=== PATIENT | female | born 1950 | race Caucasian/White ===

== ENCOUNTER → 2023-12-16 11:34 | Outpatient (REF) | payer MEDICARE, OTHER, SELFPAY ==
[2023-12-16 12:30] LABS: ALT (SGPT) 34 U/L (0-35); AST (SGOT) 37 U/L (14-36); Albumin 4.5 g/dl (3.5-5.0); Alkaline Phosphatase 57 U/L (38-126); Blood Urea Nitrogen 19 mg/dl (7-17); Calcium 9.6 mg/dl (8.4-10.2); Carbon Dioxide 28 mmol/L (22-30); Chloride 104 mmol/L (98-107); Glucose 90 mg/dl (70-99); Potassium 4.1 mmol/L (3.5-5.1); Sodium 137 mmol/L (135-145); Total Bilirubin 0.7 mg/dl (0.2-1.3); Total Protein 7.5 g/dl (6.3-8.2); eGFR > 60.00
[2023-12-16 12:47] LABS: Vitamin D, 25-OH*** 58.2 ng/mL (30-80)
== END ==
LOC: REG 11:34
PROVIDERS: ATTENDING PHYSICIAN Internal Medicine Rheumatology; FAMILY PHYSICIAN Internal Medicine
DX: E55.9 Vitamin D deficiency, unspecified (principal); M81.0 Age-related osteoporosis without current pathological fracture; Z79.899 Other long term (current) drug therapy
CPT/HCPCS: 36415; 80053; 82306

== ENCOUNTER → 2024-01-26 08:13 | Outpatient (REF) | payer MEDICARE, OTHER, SELFPAY ==
[2024-01-26 09:01] LABS: % Basophils 0.7 % (0-2); % Eosinophils 2.9 % (0-6); % Immature Granulocytes 0.3 % (0-0.5); % Lymphocytes 37.6 % (20.5-51.1); % Monocytes 7.9 % (1.7-9.3); % Neutrophils 50.6 % (42.2-75.2); Absolute Basophils 0.1 10^3/uL (0-0.2); Absolute Eosinophils 0.2 10^3/uL (0-0.7); Absolute Lymphocytes 2.6 10^3/uL (1.2-3.4); Absolute Monocytes 0.5 10^3/uL (0.1-0.6); Absolute Neutrophils 3.5 10^3/uL (1.4-6.5); Hematocrit 40.9 % (37.0-47.0); Hemoglobin 13.9 g/dL (12.0-16.0); Mean Corpuscular Hgb 31.6 pg (27.0-31.0); Mean Platelet Volume 9.5 fL (7.4-10.4); Nucleated Red Blood Cells % 0 %; Platelet Count 248 10^3/uL (130-400); Red Cell Dist. Width 12.5 % (11.5-14.5); White Blood Cell Count 6.8 10^3/uL (4.8-10.8)
[2024-01-26 09:47] LABS: ALT (SGPT) 32 U/L (0-35); AST (SGOT) 34 U/L (14-36); Albumin 4.7 g/dl (3.5-5.0); Alkaline Phosphatase 58 U/L (38-126); Blood Urea Nitrogen 16 mg/dl (7-17); Calcium 9.7 mg/dl (8.4-10.2); Carbon Dioxide 27 mmol/L (22-30); Chloride 105 mmol/L (98-107); Glucose 89 mg/dl (70-99); HDL Cholesterol 65 mg/dl; LDL Cholesterol, Calculated 127 mg/dl; Potassium 4.5 mmol/L (3.5-5.1); Sodium 137 mmol/L (135-145); Total Bilirubin 0.5 mg/dl (0.2-1.3); Total Cholesterol 212 mg/dl (50-199); Total Protein 7.6 g/dl (6.3-8.2); Triglyceride 104 mg/dl (10-149); Very Low Density Lipoprotein 20 mg/dl (0-30); eGFR > 60.00
[2024-01-26 10:07] LABS: TSH Reflex To Free T4 4.06 uIU/ml (0.47-4.68)
== END ==
LOC: REG 08:13
PROVIDERS: ATTENDING PHYSICIAN Nurse Practitioner Family
DX: I10 Essential (primary) hypertension (principal); I48.0 Paroxysmal atrial fibrillation; E78.00 Pure hypercholesterolemia, unspecified; R53.83 Other fatigue
CPT/HCPCS: 36415; 80053; 80061; 84443; 85025

== ENCOUNTER 2024-03-04 06:22 | Day surgery (SDC) | payer MEDICARE, OTHER, SELFPAY | END 2024-03-04 11:00 | disposition home or self-care (01) | LOC: CATH 06:22 | PROVIDERS: ATTENDING PHYSICIAN Internal Medicine Cardiovascular Disease; FAMILY PHYSICIAN Internal Medicine | DX: I48.91 Unspecified atrial fibrillation (principal); I08.1 Rheumatic disorders of both mitral and tricuspid valves; I08.8 Other rheumatic multiple valve diseases; I70.0 Atherosclerosis of aorta; Z79.01 Long term (current) use of anticoagulants | CPT/HCPCS: 93312; 93320; 93325 ==

== ENCOUNTER 2024-03-08 06:22 | Day surgery (SDC) | payer MEDICARE, OTHER, SELFPAY ==
[2024-02-26 11:52] VITALS: BMI 25.1
[2024-03-04 09:56] VITALS: BMI 25.4
[2024-03-08] VITALS (11 sets, daily range): BP systolic 131–153; BP diastolic 68–108; BMI 25.3
--- NOTE | 2024-03-08 07:23 | ITS.CL.ABL ---
[facility] [employer] - Ablation
Ablation
Procedure Report:
Primary Rn Orthopedic: Familia Watt MD
Procedure Date: 03/08/2024
Patient History:
Patient is a pleasant 73-year-old female with a past medical history significant for hypertension, hypercholesterolemia, osteoporosis, migraines, symptomatic early persistent atrial fibrillation with recurrence following cardioversion. Rate
controlled on metoprolol, oral anticoagulation with Eliquis.
See H&P for complete details.
Indication:
Symptomatic persistent atrial fibrillation
Recurrence following cardioversion
Arrhythmia Specific History:
Prior Medical Therapies for Rate and Rhythm Control:
X Beta-alexandr
[ ] Calcium channel-alexandr
[ ] Amiodarone
[ ] Dronederone
[ ] Sotalol
[ ] Flecainide
[ ] Dofetilide
[ ] Options limited by bradycardia
[ ] Options limited by comorbid renal disease
Prior Procedural Therapies for AF/AFL:
X Cardioversion
[ ] Pulmonary Vein Isolation
[ ] Posterior Wall Isolation
[ ] Additional lines (Specify)
[ ] Surgical Villeda-MAZE or PVI (Specify)
Procedure Performed:
X AF ablation procedure (80158) -- includes LA/CS pacing, trans-septal, 3D mapping, + ICE
[ ] +IV drug (01864)
[ ] +Other Arrhythmia (38631)
[ ] +Other AF Line/ablation (53493)
Risks and expected recovery has been explained in detail. Alternative options have been explored, and in a shared-decision making fashion we have decided that this was the most appropriate procedure.
Method
NPO status confirmed. Grounding pad applied. Defibrillator pads applied. Continuous surface ECG, pulse oximetry, and blood pressure were monitored. Procedure was performed under general anesthesia, with anesthesia services.
Both groins were clipped, prepped with Chloraprep, and draped in sterile fashion. Time out was called. Local anesthesia administered with bupivacaine. The right and left femoral veins were accessed for catheter placement, using ultrasound guidance,
micro-puncture needle/wire, and modified seldinger technique. 3 sheaths were placed. Due to venous tortuosity, a long 10 Fr sheath was used in the left groin for the ICE catheter. The following catheters were used:
[ ] Tacticath SE (D/F Curve) ablation catheter
X Viewflex 9Fr ICE catheter
X Inquiry decapolar 6Fr diagnostic catheter
[ ] CRD Hex 6Fr
[ ] Arctic Front Advance Cryoballoon ([ ]28mm[ ]23mm)
[ ] Achieve Advance mapping catheter ([ ]15mm[ ]20mm)
X FlexCath Contour 10 Fr with PulseSelect PFA Catheter
X Advisor HD Grid Mapping Catheter, SE
[ ] Acuson AcuNav 8 Fr ICE catheter
[ ]Other: [ ]
Intracardiac ultrasound (ICE) was carefully advanced into the right atrium to guide sheath placement over a J-wire, catheter placement, guide trans-septal puncture, identify potential complications, identify anatomic structures and ensure proper
contact between ablation catheter and tissue.
Heparin was given prior to trans-septal puncture. Heparin was given to achieve and maintain a target ACT of 300-400 seconds throughout the procedure.
Trans-septal access was performed under ICE guidance. The trans-septal puncture was attempted with a SafeSept wire through a [place] needle assembly however despite visualization on the midportion thin intraatrial septum, there was inability
to pass needle/wire into the LA. The assembly was removed. Next, the FlexCath Cross transseptal system was introduced into the steerable sheath. Under fluoroscopic and ICE guidance, transseptal was performed. The wire was visualized as it entered
the LSPV and system advanced under ICE guidance and fluoroscopy into the LA. The sheath was advanced into the LA and the FlexCath Cross transseptal system was removed under negative pressure. LA pressure was measured and recorded.
ICE and 3D mapping was performed to identify relevant cardiac structures. A careful 3D map was created to assess for regions of low-voltage and abnormal electrogram signals using HD grid mapping catheter and PulseSelect catheter. Additional mapping
was performed as outlined below.
Prior to ablation, glycopyrrolate was provided. PulseSelect catheter was advanced over J-wire to the ostium of each vein. Pulmonary vein isolation was performed with ostial and antral lesions in a circumferential manner. Contact was visualized via
EAM, ICE, fluoroscopy, and EGM signals. Following completion of ablation lesions, sinus rhythm was restored with a 200J synchronized DCCV and a post-ablation voltage/activation map was performed in sinus rhythm. Entrance and exit block were
confirmed for each vein.
Catheter and sheath were removed from the left atrium and post-ablation intracardiac echo evaluation was consistent with pre-ablation with no changes and no pericardial effusion and there is no left atrial thrombus or left ventricle thrombus seen.
Electrophysiology study was performed. Hemostasis was obtained with figure of 8 stitch for each groin and with manual pressure. Protamine was used for reversal.
Estimated Blood Loss
5-10 mL
Complications
None
Fluoroscopy: 22.5 minutes; 50.7 mGy; DAP 7.0
Baseline Intervals:
Rhythm: AF
QRS: 106 ms
Post-Procedure Intervals:
OH: 168 ms
QRS: 83 ms
QT: 432 ms
QTc: 429 ms
A-A: 1039 ms
R-R: 1039 ms
AVWB: 450 ms
AVERP: 600/400 ms
Recommendations
- Bedrest with straight-leg precautions as ordered
- Anticipate same day discharge if patient meeting clinical metrics
- Resume home medications as indicated
- Ok to resume anticoagulation tonight if patient and groin sites stable
- PPI daily for 30 days
- Plan for follow-up in office in 6-[address] Watt
Issac Guerra DO
Clinical Cardiac Communications Strategist
cc: Familia Watt MD; Tiesha Garces NP
[2024-03-08 08:46] LABS: ACT-LR - POC 276 Seconds (116-155)
[2024-03-08 09:06] LABS: ACT-LR - POC 335 Seconds (116-155)
[2024-03-08 09:40] LABS: ACT-LR - POC 395 Seconds (116-155)
[2024-03-08 10:25] LABS: ACT-LR - POC 392 Seconds (116-155)
[2024-03-08 10:45] LABS: ACT-LR - POC 360 Seconds (116-155)
[2024-03-08 11:31] LABS: ACT-LR - POC 160 Seconds (116-155)
[2024-03-08 14:41] LABS: ACT-LR - POC > 397 Seconds (116-155)
[2024-03-08 14:41] LABS: ACT-LR - POC > 397 Seconds (116-155)
[2024-03-08 14:41] LABS: ACT-LR - POC > 397 Seconds (116-155)
--- NOTE | 2024-03-08 14:41 | W.PN.UPDATE ---
Update Note
Progress Note Update
73 yo WF s/p PVI PF (same day). She feels good, no cp, sob, ymrna diet, voiding, FO8 intact, c/d/i no HT, EKG SB/SR. She will take her Eliquis at 6pm at home. Activity restrictions reviewed. She will take PPI for 30 days. She will f/u DCA in 2 mo. She
is for d/c home after 430p if groins stable.
73-year-old female with a past medical history significant for hypertension, hypercholesterolemia, osteoporosis, migraines, symptomatic early persistent atrial fibrillation with recurrence following cardioversion. Rate controlled on metoprolol,
oral anticoagulation with Eliquis.
See H&P for complete details.
Indication:
Symptomatic persistent atrial fibrillation
Recurrence following cardioversion
Procedure Performed:
X AF ablation procedure (15424) -- includes LA/CS pacing, trans-septal, 3D mapping, + ICE
[ ] +IV drug (56308)
[ ] +Other Arrhythmia (64321)
[ ] +Other AF Line/ablation (63871)
[2024-03-08 14:56] LABS: ACT-LR - POC > 397 Seconds (116-155)
== END 2024-03-08 16:45 | disposition home or self-care (01) ==
LOC: CATH 06:22
PROVIDERS: ATTENDING PHYSICIAN Internal Medicine Cardiovascular Disease; FAMILY PHYSICIAN Internal Medicine; OTHER PHYSICIAN Internal Medicine Cardiovascular Disease
DX: I48.19 Other persistent atrial fibrillation (principal); I08.1 Rheumatic disorders of both mitral and tricuspid valves; I10 Essential (primary) hypertension; E78.5 Hyperlipidemia, unspecified; Z87.891 Personal history of nicotine dependence; Z79.01 Long term (current) use of anticoagulants; E78.00 Pure hypercholesterolemia, unspecified; M81.0 Age-related osteoporosis without current pathological fracture; I87.2 Venous insufficiency (chronic) (peripheral); M19.90 Unspecified osteoarthritis, unspecified site; Z88.0 Allergy status to penicillin; G43.909 Migraine, unspecified, not intractable, without status migrainosus; I08.8 Other rheumatic multiple valve diseases; I70.0 Atherosclerosis of aorta
CPT/HCPCS: 93312; 93320; 93325; C1769; C1894; C1759; C1732; 76937; 85347; 86900; 86901; 93005; 93656

== ENCOUNTER → 2024-04-25 08:01 | Outpatient (REF) | payer MEDICARE, OTHER, SELFPAY | LOC: RAD 08:01 | PROVIDERS: ATTENDING PHYSICIAN Internal Medicine Rheumatology; FAMILY PHYSICIAN Internal Medicine | DX: M81.0 Age-related osteoporosis without current pathological fracture (principal); M85.89 Other specified disorders of bone density and structure, multiple sites; Z13.820 Encounter for screening for osteoporosis | CPT/HCPCS: 77080; 77081 ==

== ENCOUNTER → 2024-06-13 10:27 | Outpatient (REF) | payer MEDICARE, OTHER, SELFPAY ==
[2024-06-13 13:01] LABS: ALT (SGPT) 24 U/L (0-35); AST (SGOT) 29 U/L (14-36); Albumin 4.6 g/dl (3.5-5.0); Alkaline Phosphatase 59 U/L (38-126); Blood Urea Nitrogen 22 mg/dl (7-17); Calcium 9.6 mg/dl (8.4-10.2); Carbon Dioxide 27 mmol/L (22-30); Chloride 105 mmol/L (98-107); Glucose 103 mg/dl (70-99); Potassium 4.3 mmol/L (3.5-5.1); Sodium 138 mmol/L (135-145); Total Bilirubin 0.5 mg/dl (0.2-1.3); Total Protein 7.1 g/dl (6.3-8.2); eGFR > 60.00
== END ==
LOC: REG 10:27
PROVIDERS: ATTENDING PHYSICIAN Internal Medicine Rheumatology; FAMILY PHYSICIAN Internal Medicine
DX: M81.0 Age-related osteoporosis without current pathological fracture (principal); Z79.899 Other long term (current) drug therapy
CPT/HCPCS: 36415; 80053

== ENCOUNTER → 2024-11-30 11:35 | Outpatient (REF) | payer MEDICARE, OTHER, SELFPAY | LOC: WDC 11:35 | PROVIDERS: ATTENDING PHYSICIAN Nurse Practitioner Family; REFERRING PHYSICIAN Internal Medicine Rheumatology | DX: Z12.31 Encounter for screening mammogram for malignant neoplasm of breast (principal) | CPT/HCPCS: 77063; 77067 ==

== ENCOUNTER → 2024-12-30 13:36 | Outpatient (REF) | payer MEDICARE, OTHER, SELFPAY | LOC: RAD 13:36 | PROVIDERS: ATTENDING PHYSICIAN Internal Medicine Rheumatology; FAMILY PHYSICIAN Internal Medicine | DX: M75.101 Unspecified rotator cuff tear or rupture of right shoulder, not specified as traumatic (principal) | CPT/HCPCS: 73030 ==

== ENCOUNTER → 2025-02-01 09:04 | Outpatient (REF) | payer MEDICARE, OTHER, SELFPAY ==
[2025-02-01 10:59] LABS: % Basophils 0.4 % (0-2); % Eosinophils 1.8 % (0-6); % Immature Granulocytes 0.4 % (0-0.5); % Lymphocytes 33.4 % (20.5-51.1); Absolute Eosinophils 0.2 10^3/uL (0-0.7); Absolute Lymphocytes 2.7 10^3/uL (1.2-3.4); Absolute Monocytes 0.5 10^3/uL (0.1-0.6); Absolute Neutrophils 4.7 10^3/uL (1.4-6.5); Hematocrit 40.1 % (37.0-47.0); Hemoglobin 13.6 g/dL (12.0-16.0); Mean Corp Hgb Conc. 33.9 g/dL (33.0-37.0); Mean Corpuscular Hgb 30.7 pg (27.0-31.0); Mean Corpuscular Volume 90.5 fL (81.0-99.0); Mean Platelet Volume 10.1 fL (7.4-10.4); Nucleated Red Blood Cells % 0 %; Platelet Count 255 10^3/uL (130-400); Red Blood Cell Count 4.43 10^6/uL (4.20-5.40); Red Cell Dist. Width 12.9 % (11.5-14.5); White Blood Cell Count 8.1 10^3/uL (4.8-10.8)
[2025-02-01 11:59] LABS: Vitamin D, 25-OH*** 51.1 ng/mL (30-80)
[2025-02-01 12:13] LABS: TSH Reflex To Free T4 2.67 uIU/ml (0.47-4.68)
[2025-02-01 12:16] LABS: ALT (SGPT) 26 U/L (0-35); AST (SGOT) 26 U/L (14-36); Albumin 4.3 g/dl (3.5-5.0); Alkaline Phosphatase 63 U/L (38-126); Blood Urea Nitrogen 21 mg/dl (7-17); Calcium 9.7 mg/dl (8.4-10.2); Carbon Dioxide 30 mmol/L (22-30); Chloride 103 mmol/L (98-107); Glucose 79 mg/dl (70-99); HDL Cholesterol 75 mg/dl; LDL Cholesterol, Calculated 138 mg/dl; Potassium 4.4 mmol/L (3.5-5.1); Sodium 141 mmol/L (135-145); Total Bilirubin 0.7 mg/dl (0.2-1.3); Total Cholesterol 232 mg/dl (50-199); Total Protein 7.3 g/dl (6.3-8.2); Triglyceride 97 mg/dl (10-149); Very Low Density Lipoprotein 19 mg/dl (0-30); eGFR > 60.00
[2025-02-02 12:37] LABS: Rubeola (Measles) IgG Positive
== END ==
LOC: REG 09:04
PROVIDERS: ATTENDING PHYSICIAN Internal Medicine Rheumatology; FAMILY PHYSICIAN Nurse Practitioner Family
DX: E55.9 Vitamin D deficiency, unspecified (principal); M81.0 Age-related osteoporosis without current pathological fracture; E78.2 Mixed hyperlipidemia; I10 Essential (primary) hypertension; Z98.890 Other specified postprocedural states; Z01.89 Encounter for other specified special examinations
CPT/HCPCS: 36415; 80053; 80061; 82306; 84443; 85025; 86765

== ENCOUNTER → 2025-05-10 12:38 | Outpatient (REF) | payer MEDICARE, OTHER, SELFPAY ==
[2025-05-10 13:25] LABS: Hematocrit 37.4 % (37.0-47.0); Hemoglobin 12.9 g/dL (12.0-16.0); Mean Corp Hgb Conc. 34.5 g/dL (33.0-37.0); Mean Corpuscular Volume 90.6 fL (81.0-99.0); Nucleated Red Blood Cells % 0 %; Platelet Count 235 10^3/uL (130-400); Red Cell Dist. Width 12.9 % (11.5-14.5)
[2025-05-10 13:51] LABS: Blood Urea Nitrogen 16 mg/dl (7-17); Calcium 9.4 mg/dl (8.4-10.2); Carbon Dioxide 22 mmol/L (22-30); Chloride 106 mmol/L (98-107); Glucose 100 mg/dl (70-99); Potassium 4.3 mmol/L (3.5-5.1); Sodium 137 mmol/L (135-145); eGFR > 60.00
== END ==
LOC: REG 12:38
PROVIDERS: ATTENDING PHYSICIAN Orthopaedic Surgery; FAMILY PHYSICIAN Internal Medicine
DX: Z01.818 Encounter for other preprocedural examination (principal)
CPT/HCPCS: 36415; 80048; 85025